=== PATIENT | female | born 1965 | race Caucasian/White ===

== ENCOUNTER 2018-03-17 16:00 | Emergency (ER) | payer BC ==
[2018-03-17] MEDS ORDERED: ASPIRIN 81 MG CHEW PO ONE (16:15)
--- NOTE | 2018-03-17 16:32 | ER Report ---
History and Physical Time Seen By MD: 16:31 Hx. of Stated Complaint: PATIENT REPORTS A TINGLING IN HER CHEST THAT STARTED LAST NIGHT. PATIENT DENIES CARDIAC HISTORY AND REPORTS THAT SHE IS UNDER A GOOD DEAL OF STRESS RIGHT NOW HPI/ROS CHIEF COMPLAINT: Chest pain HISTORY OF PRESENT ILLNESS: 52-year-old female patient presents to emergency room with complaint of chest pain. Patient states she's been having chest pain since last night. She states that it hurts to the medial aspect of the left breast, patient states is nothing seems to make the pain better or worse. She does feel like she has some tingling to her chest as well. Patient states that she has no shortness of breath, no nausea, no vomiting. She does not feel as if she has something sitting on her chest. Patient states is nothing seems to make the pain better or worse. She states it does tend to come and go on its own. Patient has not taken any medication for this. Patient states she is under a significant amount of stress. She is visiting her family from [facility]. She states that her father has been diagnosed with cancer and that his been very hard on her mother. They state they were in the emergency room last night from 2 until 6:00 this morning. REVIEW OF SYSTEMS: Respiratory: No cough, no dyspnea. Cardiovascular: As noted above Gastrointestinal: No vomiting, no abdominal pain. Musculoskeletal: No back pain. Allergies: Coded Allergies: Penicillins (Verified Allergy, Severe, 03/17/18) Home Meds Active Scripts Simvastatin (SIMVASTATIN) 20 Mg Tablet, 20 MG PO HS, #30 TAB Prov:JENARO KUMAR [facility] 03/17/18 Lisinopril (LISINOPRIL) 5 Mg Tablet, 5 MG PO QDAY, #30 TAB Prov:JENARO KUMARP 03/17/18 Cyclobenzaprine Hcl (CYCLOBENZAPRINE HCL) 10 Mg Tablet, 10 MG PO TID Y for MUSCLE SPASMS, #12 TAB Prov:JENARO KUMAR [facility] 03/17/18 Reported Medications Hydroxyzine Hcl (HYDROXYZINE HCL) 50 Mg Tablet, 50 MG PO PRN 03/17/18 Montelukast Sodium (SINGULAIR) 10 Mg Tablet, 1 TAB PO QDAY, TAB 03/17/18 Trazodone Hcl (TRAZODONE HCL) 50 Mg Tablet, 50 MG PO QHS 03/17/18 Simvastatin (SIMVASTATIN) 20 Mg Tablet, 20 MG PO HS, TAB 03/17/18 Glyburide (GLYBURIDE) 5 Mg Tab, 5 MG FT BID, TAB 03/17/18 Bupropion Hcl (BUPROPION HCL) 75 Mg Tablet, 75 MG PO BID, #10 TAB 03/17/18 Lisinopril (LISINOPRIL) 5 Mg Tablet, 5 MG PO QDAY, TAB 03/17/18 Metformin Hcl (METFORMIN HCL) 500 Mg Tablet, 1 TAB PO BID, TAB 03/17/18 Lamotrigine (LAMOTRIGINE) 200 Mg Tablet, 200 MG PO QDAY 03/17/18 Past Medical/Surgical History Patient has a past medical history of reflux, knee pain, diabetes, bipolar. Patient denies any pertinent surgical history. Reviewed Nurses Notes: Yes Constitutional Vital Sign - Last 24 Hours 03/17/18 03/17/18 03/17/18 03/17/18 16:10 16:22 16:30 17:00 Pulse 78 77 79 Resp 20 26 22 B/P (MAP) 141/101 138/89 (105) 126/73 (90) 124/81 (95) Pulse Ox 94 91 91 O2 Delivery Room Air 03/17/18 17:30 Pulse 78 Resp 10 B/P (MAP) 113/76 (88) Pulse Ox 88 Physical Exam General Appearance: The patient is alert, has no immediate need for airway protection and no current signs of toxicity. Respiratory: Chest is non tender, lungs are clear to auscultation. Cardiac: regular rate and rhythm Gastrointestinal: Abdomen is soft and non tender, no masses, bowel sounds normal. Musculoskeletal: Neck: Neck is supple and non tender. Extremities have full range of motion and are non tender. Skin: No rashes or lesions. DIFFERENTIAL DIAGNOSIS: After history and physical exam differential diagnosis was considered for chest pain including but not limited to myocardial ischemia, pericarditis pulmonary embolus, chest wall pain, pleural inflammation and pulmonary infectious causes. Medical Decision Making Data Points Result Diagram: 03/17/18 1627 03/17/18 1627 Laboratory Hematology Test 03/17/18 16:27 Red Blood Count 5.04 M/uL (4.17-5.56) Mean Corpuscular Volume 86.7 fL (80.0-96.0) Mean Corpuscular Hemoglobin 30.6 pg (26.0-33.0) Mean Corpuscular Hemoglobin Concent 35.3 g/dL (32.0-36.0) Red Cell Distribution Width 12.9 % (11.5-14.5) Mean Platelet Volume 8.3 fL (7.2-11.1) Neutrophils (%) (Auto) 51.4 % (39.4-72.5) Lymphocytes (%) (Auto) 41.0 % (17.6-49.6) Monocytes (%) (Auto) 7.0 % (4.1-12.4) Eosinophils (%) (Auto) 0.2 % (0.4-6.7) Basophils (%) (Auto) 0.4 % (0.3-1.4) Nucleated RBC Relative Count (auto) 0.1 /100WBC Neutrophils # (Auto) 3.5 K/uL (2.0-7.4) Lymphocytes # (Auto) 2.8 K/uL (1.3-3.6) Monocytes # (Auto) 0.5 K/uL (0.3-1.0) Eosinophils # (Auto) 0.0 K/uL (0.0-0.5) Basophils # (Auto) 0.0 K/uL (0.0-0.1) Nucleated RBC Absolute Count (auto) 0.00 K/uL Sodium Level 139 mmol/L (137-145) Potassium Level 3.9 mmol/L (3.5-5.0) Chloride Level 101 mmol/L (98-107) Carbon Dioxide Level 24 mmol/L (22-31) Blood Urea Nitrogen 13 mg/dl (7-18) Creatinine 0.80 mg/dl (0.52-1.04) Glomerular Filtration Rate Calc > 60.0 Random Glucose 139 mg/dl (75-110) Calcium Level 9.6 mg/dl (8.4-10.2) Total Bilirubin 0.4 mg/dl (0.2-1.3) Aspartate Amino Transf (AST/SGOT) 50 U/L (0-35) Alanine Aminotransferase (ALT/SGPT) 69 U/L (0-56) Alkaline Phosphatase 59 U/L (0-126) Troponin I < 0.012 ng/ml Total Protein 8.3 g/dl (6.3-8.2) Albumin 4.9 g/dl (3.5-5.0) Chemistry Test 03/17/18 16:27 White Blood Count 6.9 k/uL (4.5-11.0) Red Blood Count 5.04 M/uL (4.17-5.56) Hemoglobin 15.4 g/dL (12.0-16.0) Hematocrit 43.7 % (34.0-47.0) Mean Corpuscular Volume 86.7 fL (80.0-96.0) Mean Corpuscular Hemoglobin 30.6 pg (26.0-33.0) Mean Corpuscular Hemoglobin Concent 35.3 g/dL (32.0-36.0) Red Cell Distribution Width 12.9 % (11.5-14.5) Platelet Count 238 K/uL (150-450) Mean Platelet Volume 8.3 fL (7.2-11.1) Neutrophils (%) (Auto) 51.4 % (39.4-72.5) Lymphocytes (%) (Auto) 41.0 % (17.6-49.6) Monocytes (%) (Auto) 7.0 % (4.1-12.4) Eosinophils (%) (Auto) 0.2 % (0.4-6.7) Basophils (%) (Auto) 0.4 % (0.3-1.4) Nucleated RBC Relative Count (auto) 0.1 /100WBC Neutrophils # (Auto) 3.5 K/uL (2.0-7.4) Lymphocytes # (Auto) 2.8 K/uL (1.3-3.6) Monocytes # (Auto) 0.5 K/uL (0.3-1.0) Eosinophils # (Auto) 0.0 K/uL (0.0-0.5) Basophils # (Auto) 0.0 K/uL (0.0-0.1) Nucleated RBC Absolute Count (auto) 0.00 K/uL Glomerular Filtration Rate Calc > 60.0 Calcium Level 9.6 mg/dl (8.4-10.2) Total Bilirubin 0.4 mg/dl (0.2-1.3) Aspartate Amino Transf (AST/SGOT) 50 U/L (0-35) Alanine Aminotransferase (ALT/SGPT) 69 U/L (0-56) Alkaline Phosphatase 59 U/L (0-126) Troponin I < 0.012 ng/ml Total Protein 8.3 g/dl (6.3-8.2) Albumin 4.9 g/dl (3.5-5.0) EKG/Imaging Imaging Exam type: CHEST PA AND LAT History: chest pain Comparison: None. Findings: The lungs are free of acute effusions, infiltrates or edema. The cardiac silhouette is normal in size. The trachea is in midline. There are mild spondylotic changes of the thoracic spine. IMPRESSION: 1. No acute cardiac pulmonary process is seen Report Dictated By: Xuan Bell MD at 03/17/2018 5:26 PM Report E-Signed By: Xuan Bell MD at 03/17/2018 5:26 PM ED Course/Re-evaluation ED Course Patient was admitted to an exam room, history and physical were obtained. Differential diagnoses were considered. On examination patient had no tenderness to her chest, lungs are clear, heart is regular, abdomen soft nontender. A CBC, CMP, EKG, chest x-ray, troponin were done. Lab results were unremarkable, chest x-ray was negative, EKG was a normal sinus rhythm with first -degree AV block. I discussed findings with patient. I do believe that the cause of pain is likely muscle spasms related to stress. Patient does admit that she tends to carry her stress her shoulders. We will go ahead and treat her with a muscle relaxer. She is to follow-up with her primary care provider when she returns home to [place]. She is return to the emergency room if condition worsens. Patient verbalized understanding and agreement with plan. Patient did request a refill of her lisinopril and simvastatin. Those were done. Decision to Disposition Date: Mar 17, 2018 Decision to Disposition Time: 17:43 Depart Departure Latest Vital Signs Vital Signs Date Time Temp Pulse Resp B/P (MAP) Pulse Ox O2 Delivery O2 Flow Rate FiO2 03/17/18 17:30 78 10 113/76 (88) 88 03/17/18 16:10 Room Air Impression: Primary Impression: Chest pain Additional Impression: Muscle spasm Condition: Improved Disposition: HOME OR SELF-CARE New Scripts Simvastatin (SIMVASTATIN) 20 Mg Tablet 20 MG PO HS, #30 TAB Prov: JENARO KUMAR [employer] 03/17/18 Lisinopril (LISINOPRIL) 5 Mg Tablet 5 MG PO QDAY, #30 TAB Prov: JENARO KUMAR 03/17/18 Cyclobenzaprine Hcl (CYCLOBENZAPRINE HCL) 10 Mg Tablet 10 MG PO TID Y for MUSCLE SPASMS, #12 TAB Prov: JENARO KUMAR 03/17/18 Patient Instructions: Chest Pain (ED) Additional Instructions: Increase fluid intake. Get plenty of rest. Follow up with your primary care provider when you return home to [place]. Continue with current medications. Return to the ER if pain worsens. Problem Qualifiers Primary Impression: Chest pain Chest pain type: other chest pain Qualified Codes: R07.89 - Other chest pain JENARO KUMAR Mar 17, 2018 16:31
[2018-03-17 16:44] LABS: PLATELET COUNT, AUTOMATED 238 K/uL (150-450)
[2018-03-17] MEDS ORDERED: GLY5 FT (16:57)
[2018-03-17] MEDS ORDERED: HYDR-4228 PO (16:57)
[2018-03-17] MEDS ORDERED: BUPR-147 PO (16:57)
[2018-03-17] MEDS ORDERED: MONT10TA PO (16:57)
[2018-03-17] MEDS ORDERED: LAMO200T45 PO (16:57)
[2018-03-17] MEDS ORDERED: LISI5TAB25 PO ×2 (16:57→17:42)
[2018-03-17] MEDS ORDERED: SIMV-49 PO ×2 (16:57→17:42)
[2018-03-17] MEDS ORDERED: METF-411 PO (16:57)
[2018-03-17] MEDS ORDERED: TRAZ50TA34 PO (16:57)
[2018-03-17 17:30] VITALS: BP 113/76
--- NOTE | 2018-03-17 17:31 | RADIOLOGY IMAGING REPORT ---
FACILITY: [facility] PATIENT NAME: Jo Parnell : 1965 MR: [id number] V: [id number] EXAM DATE: ORDERING PHYSICIAN: JENARO KUMAR TECHNOLOGIST: Location: [facility] Patient: Jo Parnell : 1965 Visit/Account:[id number] Date of Sevice: 03/17/2018 Exam type: CHEST PA AND LAT History: chest pain Comparison: None. Findings: The lungs are free of acute effusions, infiltrates or edema. The cardiac silhouette is normal in siz e. The trachea is in midline. There are mild spondylotic changes of the thoracic spine. IMPRESSION: 1. No acute cardiac pulmonary process is seen Report Dictated By: Xuan Bell MD at 03/17/2018 5:26 PM Report E-Signed By: Xuan Bell MD at 03/17/2018 5:26 PM WSN:[id number]
[2018-03-17] MEDS ORDERED: ORPHENADRINE 60MG/2ML INJ IVP ONE (17:40)
[2018-03-17] MEDS ORDERED: CYCL10TA29 PO (17:42)
--- NOTE | 2018-03-18 11:36 | EKG ---
FACILITY: [facility] PATIENT NAME: POLO ESPARZA : [id number] MR: [id number] V: [id number] EXAM DATE: ORDERING PHYSICIAN: JENARO KUMAR TECHNOLOGIST: ABHISHEK Farias Reason : Blood Pressure : / mmHG Vent. Rate : 073 BPM Atrial Rate : 073 BPM P-R Int : 216 ms QRS Dur : 070 ms QT Int : 406 ms P-R-T Axes : 038 028 059 degrees QTc Int : 447 ms Sinus rhythm with 1st degree AV block Possible left atrial enlargement Decreased R wave progression anteriorly No previous ECGs available Confirmed by JAVY IVY ([id number] on 03/18/2018 2:44:35 PM Referred By: JOSÉ Confirmed By:JAVY IVY
== END 2018-03-17 17:51 | disposition home or self-care (01) ==
LOC: ER 16:24
DX: R07.89 Other chest pain (principal); M62.838 Other muscle spasm; I44.0 Atrioventricular block, first degree
CPT/HCPCS: 84484; 85025; 93005; 96374; 99283; J2360; 71046; 82040; 82247; 82310; 82374; 82435; 82565; 82947; 84075; 84132; 84155; 84295; 84450; 84460; 84520